=== PATIENT | female | born 1950 | race Caucasian/White ===

== ENCOUNTER 2017-04-27 02:36 | Emergency (ER) | payer MEDICARE ==
[~2017-04-27] VITALS: Ht 165.1 cm; Wt 81.6 kg
--- NOTE | 2017-04-27 02:40 | NUR ---
66 YO FEMALE BB RA FROM HOME. PT IS ALERT X 3, SEEMS DROWSIE, STATES SHE TOOK HER BLOOD PRESSURE MEDICATION WITH HER ANTI ANXIETY MEDICATION AND SLEEP MEDICATION. PT IS NOTED TO BED HYPO TENSIVE, SBP IN THE 70'S, MD RUIZ NOTIFED. SKIN WARM AND DRY, RR EVEN AND UNLABORED. PT GOWNED, PLACED ON POWDER BLENDER AND POURER. AWAITING ORDERS FROM PROVIDER.
--- NOTE | 2017-04-27 02:45 | NUR ---
MD RUIZ AT BED SIDE FOR EVAL
[2017-04-27] MEDS ORDERED: IV NS 0.9% 1,000 ML BAG IV ONE ×2 (03:00→04:30)
--- NOTE | 2017-04-27 03:00 | NUR ---
MEDICATED PT ORDERED
--- NOTE | 2017-04-27 03:24 | NUR ---
PT TRANSPORTED TO CT VIA GURNEY BY RADIOLOGY TEAM
[2017-04-27 03:29] LABS: EOSINOPHILS % (AUTO) 0.3 % (0.0-6.0); HEMATOCRIT 43 % (33-45); HEMOGLOBIN 14.1 g/dL (11.5-14.8); LYMPHOCYTES # (AUTO) 1.6 /CMM (0.8-4.8); LYMPHOCYTES % (AUTO) 8.8 % (20.0-44.0); MEAN CORPUSCULAR HEMOGLOBIN 31 PG (26.0-33.0); MEAN CORPUSCULAR HGB CONC 33 g/dl (31.0-36.0); MEAN CORPUSCULAR VOLUME 96 fL (82-100); MONOCYTES # (AUTO) 0.7 /CMM (0.1-1.30); MONOCYTES % (AUTO) 4.2 % (2.0-12.0); NEUTROPHILS # (AUTO) 15.4 /CMM (1.8-8.9); NEUTROPHILS % (AUTO) 86.7 % (43.0-81.0); PLATELET COUNT (AUTO) 233 /CMM (150-450); RDW COEFFICIENT OF VARIATION 13.1 (11.5-15.0); RED BLOOD CELL COUNT(AUTO) 4.54 MIL/uL (4.0-5.2); WHITE BLOOD COUNT (AUTO) 17.7 K/uL (4.3-11.0)
[2017-04-27 03:38] LABS: CALCIUM, SERUM 8.7 mg/dL (8.5-10.1); CARBON DIOXIDE 27 mmol/L (21-32); CHLORIDE 106 mmol/L (98-107); CREATININE 1.1 mg/dL (0.6-1.3); GLUCOSE 162 mg/dL (74-106); POTASSIUM 3.7 mmol/L (3.5-5.1); SODIUM SERUM 142 mmol/L (136-145); UREA NITROGEN, BLOOD 16 mg/dL (7-18)
[2017-04-27 03:43] LABS: ALANINE AMINOTRANSFERASE 22 U/L (12-78); ALBUMIN 3.3 g/dL (3.4-5.0); ALKALINE PHOSPHATASE 86 U/L (46-116); ASPARTATE AMINOTRANSFERASE 14 U/L (15-37); BILIRUBIN,DIRECT 0.1 mg/dL (0.0-0.2); BILIRUBIN,TOTAL 0.4 mg/dL (0.2-1.0); TOTAL PROTEIN, SERUM 6.7 g/dL (6.4-8.2)
[2017-04-27 03:45] LABS: TROPONIN I < 0.017 ng/mL (0.00-0.056)
--- NOTE | 2017-04-27 03:45 | NUR ---
MEDICATED PT ORDERED
[2017-04-27 05:31] LABS: APPEARANCE,URINE CLEAR (CLEAR); BILIRUBIN,URINE NEGATIVE (NEGATIVE); BLOOD, URINE NEGATIVE Ery/uL (NEGATIVE); COLOR,URINE YELLOW (YELLOW); KETONES,URINE NEGATIVE (NEGATIVE); LEUKOCYTE ESTERASE ,URINE TRACE (NEGATIVE); NITRITE, URINE NEGATIVE (NEGATIVE); PROTEIN,URINE NEGATIVE (NEGATIVE); UGLUCOSE NEGATIVE (NEGATIVE); UROBILINOGEN,URINE 0.2 EU/dL (0.2)
[2017-04-27 05:34] LABS: BACTERIA,URINE None seen /HPF (None Seen); RBC,URINE NONE SEEN /HPF (0-2); SQUAMOUS EPITHELIAL CELL,UR Moderate /HPF (None Seen); WBC,URINE 0-2 /HPF (0-3)
--- NOTE | 2017-04-27 06:25 | NUR ---
PT RESTING IN ER BED, NAD NOTED, PT IS ON HOME SERVICE DEMONSTRATOR. WILL CONTINUE TO MONITOR
[2017-04-27 07:17] VITALS: BP 101/59
== END 2017-04-27 07:17 | disposition home or self-care (01) ==
LOC: ER 02:38
DX: F13.10 Sedative, hypnotic or anxiolytic abuse, uncomplicated (principal); E11.9 Type 2 diabetes mellitus without complications; F41.9 Anxiety disorder, unspecified; I10 Essential (primary) hypertension; W19.XXXA Unspecified fall, initial encounter; Y93.89 Activity, other specified; Y92.89 Other specified places as the place of occurrence of the external cause; Y99.9 Unspecified external cause status
CPT/HCPCS: 36415; 70450; 71010; 80048; 80076; 80305; 81001; 82962; 84484; 85025; 93005; 96360; 96361; 99285; A4606; G0480; J7030; 81000-TC; Z7610